=== PATIENT | female | born 1980 | race African-American/Black ===

== ENCOUNTER 2023-02-21 01:42 | Day surgery (SDC) | payer BC, SELFPAY ==
[2023-02-16 14:45] VITALS: BMI 32.7
--- NOTE | 2023-02-16 14:49 | PC.NURSE ---
Report to the Outpatient Waiting Room, entrance under the green pavilion located off [facility], at time 0830 on date 02/21/23. Planned Procedure Time: 1030. Time changes happen often and if your time is changed the preop area will call you the afternoon before. - You and your visitor will be asked to self-screen and do not enter if you have any COVID symptoms. - A mask is optional within the hospital at this time. Patients may have clear liquids (water, carbonated beverages, clear teas, apple juice) until 3 hours prior to surgery with a maximum of 20 ounces. - No food from midnight until time of surgery Take the following medications with a SIP of water the morning of surgery: N/A DO NOT STOP ANY OF YOUR OTHER PRESCRIPTION MEDICATIONS PRIOR TO SURGERY EXCEPT THE FOLLOWING Medications to discontinue per physician: N/A Date to take last dose: N/A Please no make-up, nail latvian, hairspray, perfume, deodorant, or body powder the day of surgery. No jewelry (including any body piercings) or valuables the day of surgery, leave them at home. Please take a shower or bath the night before, or the morning of, surgery with an antibacterial soap. Wear comfortable, loose fitting clothing. - Jewelry must be removed prior to entering the operating room. Rings and piercings that are not removed may be cut off. - The hospital will not accept responsibility for valuables. - Please leave all valuables, including medications, at home the day of surgery. If you are going home after surgery, a licensed frontload driver must drive you home. - NO public transportation without another adult if you receive anesthesia. - We recommend that an adult stay with you for 24 hours following discharge. - We also recommend that you do not drive, make important decision, drink alcoholic beverages, or take any drugs that were not prescribed by your health care provider for at least 24 hours after your discharge time. Follow any additional instructions given to you from your surgeon. If you or anyone in your household have experienced Covid symptoms in the past week, please notify your surgeon or the nurse liaison at the phone number below for possible testing. Telephone instructions given to PT Adal PETE and asked if any additional questions and then verbalized understanding. Patient advised to call surgeon office or pre surgery nurse liaison [phone] if any additional questions.
--- NOTE | 2023-02-21 07:34 | WPDHPUPDATE1 ---
History and Physical Update Update Date/Time: 02/21/23 07:34 History and Physical has been reviewed, including an updated exam of the patient. There are NO changes in the patient's condition. Risks, benefits, and alternatives have been discussed and questions answered. Patient agrees to proceed with procedure.
--- NOTE | 2023-02-21 07:34 | PM.HPGS ---
History of Present Illness History of Present Illness Consent: Risks, benefits, and alternatives have been discussed and questions answered. Patient agrees to proceed with procedure. Chief complaint: missing iud strings Narrative: Tata Mcnally is a 43 year old female with missing intrauterine device strings. Pelvic ultrasound reveals the IUD to be within the uterus. Patient did not tolerate attempts to remove in the office without anesthesia. Plan is to proceed with IUD removal in the operating room with hysteroscopy. Risks of infection, bleeding perforation, and inability to remove IUD are reviewed. Patient voices understanding and agrees to proceed. Review of Systems Review of Systems: not repeated day of surgery; patient states no changes in status PMFSH Past Medical History Medical History (Updated 02/21/23 @ 07:37 by Olimpia Maradiaga MD) (normal spontaneous vaginal delivery) Surgical History Surgical History (Updated 02/21/23 @ 07:36 by Olimpia Maradiaga MD) History of loop electrical excision procedure (LEEP) Social History Social History Smoking status: Never smoker Alcohol intake: never Substance use: never Substance use type: does not use Living arrangements: alone Spiritual care concerns: No Meds Home Medications and Allergies Home Medications Medication Instructions Recorded Confirmed Type No Home Medications 02/16/23 02/16/23 History Allergies Allergy/AdvReac Type Severity Reaction Status Date / Time No Known Allergies Allergy Mild Unverified 02/16/23 14:43 Exam Const: General: healthy appearing and alert Orientation/consciousness: patient oriented x3 Resp: Effort & Inspection: normal respiratory effort GI: GI Palp: Yes Soft to palpation, No Tenderness to palpation present (GI) and No Palpable mass present : External Female Exam: normal external appearance Speculum Exam - Vagina: normal appearance of the vagina and normal vaginal discharge Speculum Exam - Cervix: normal appearance of the cervix Bimanual exam- vagina & uterus: uterine size normal and consistency normal Bimanual Exam- Adnexa, other: normal adnexae and No adnexal tenderness Neuro: General: patient oriented x3 Assessment and Plan Assessment and plan (1) Malpositioned intrauterine device (IUD): Code(s): T83.32XA - Displacement of intrauterine contraceptive device, initial encounter Status: Acute Assessment and Plan: due to IUD strings being missing the plan history proceed with hysteroscopic removal of IUD
[2023-02-21 08:29] VITALS: BP 129/74; PULSE 64; RESP 18; TEMP 36.3; O2SAT 100
[2023-02-21] MEDS: LACTATED RINGERS 1,000 ML 30 ML IV CONT (08:36)
--- NOTE | 2023-02-21 08:36 | P.PNAN_ITS ---
Anes - Initial Pre Proc Eval Procedure: Operation Date: 02/21/23 09:30 Proposed Procedures p Hysteroscopy, Intrauterine Device Removal - Olimpia Maradiaga MD Date/Time: 02/21/23 08:36 Surgeon: Olimpia Maradiaga MD Pre Op Diagnosis: missing iud strings Patient Data Age: 43 Gender: F Height: 1.55 m Weight: 79.4 kg Last Vital Signs Temp 36.3 C L 02/21/23 08:29 Pulse 64 02/21/23 08:29 Resp 18 02/21/23 08:29 BP 129/74 02/21/23 08:29 Pulse Ox 100 02/21/23 08:29 O2 Del Method Room Air 02/21/23 08:29 Allergies Allergy/AdvReac Type Severity Reaction Status Date / Time No Known Allergies Allergy Mild Verified 02/21/23 08:19 Home Medications Medication Instructions Recorded Confirmed Type No Home Medications 02/16/23 02/21/23 History Patient hx anesthesia problems: none Family hx anesthesia problems: none Results Review: All pre-operative results and documents have been reviewed as part of the pre- operative evaluation. [facility] Past Medical History Medical History (Updated 02/21/23 @ 07:37 by Olimpia Maradiaga MD) (normal spontaneous vaginal delivery) Surgical History Surgical History (Updated 02/21/23 @ 07:36 by Olimpia Maradiaga MD) History of loop electrical excision procedure (LEEP) Social History Social History Smoking status: Never smoker Alcohol intake: never Substance use: never Substance use type: does not use Living arrangements: alone Spiritual care concerns: No Anes - Eval Final PreProcedure Day of Procedure 02/21/23 08:36 Patient weight: obese Heart: regular rate and rhythm Lungs: clear to auscultation Airway: Mallampati scale class II Neurological: alert and oriented Last oral intake: >/= 8 hours ASA classification: II Emergent: no Anesthetic plan: proceed Anesthesia type and monitoring: general GIVS and standard monitoring Results Review: All pre-operative results and documents have been reviewed as part of the pre- operative evaluation. Informed Consent: The patient's anesthetic plan and its attendant risks and benefits were discussed with the patient/family/POA. Questions were solicited and answers provided to the satisfaction of the patient/family/POA.
[2023-02-21] MEDS: LIDOCAINE HCL 1% LOCAL INJ 20 ML VIAL 10 ML INFILTRATE (09:45)
--- NOTE | 2023-02-21 09:53 | W.PM.PROC2 ---
Procedure Note - Detailed Date of Procedure 02/21/23 Pre-op Diagnosis missing iud strings Post-op Diagnosis Same Procedure Performed Hysteroscopy with removal of IUD Surgeon Olimpia Maradiaga MD Anesthesia MAC and Local Findings uterus sounds to 8cm; IUD is in its proper position and the strings are noted high in the cervix Description of Procedure The patient is taken to the operating room and placed under anesthesia in the dorsal lithotomy position. She was prepped and usual fashion. [place] speculum was placed in the vagina and the cervix grasped on the anterior lip with a tenaculum. The cervix is injected in each quadrant. The uterus is sounded to 8cm. The hysteroscope was attempted to be placed but does not pass easily. The cervix is dilated to a 5 Hegar. The hysteroscope was then able to pass easily. The above-stated findings were noted. The hysteroscope was removed. The polyp forceps are used to grasp the strings and the cervix and the IUD was removed intact and discarded. All instruments were then removed. Sponge, needle, and instrument counts are correct per the OR staff. The patient is awakened from anesthesia and taken to recovery in stable condition. Estimated Blood Loss 5 Drains No Packing No Pathology None sent Complications No immediate complications Condition Stable Disposition PACU
[2023-02-21 09:54] VITALS: BP 114/79; PULSE 88; RESP 14; O2SAT 99
[2023-02-21 10:14] VITALS: BP 118/72; PULSE 73; RESP 14; O2SAT 100
[2023-02-21 10:44] VITALS: BP 139/79; PULSE 50; RESP 14
[2023-02-21 11:15] VITALS: BP 140/69; PULSE 50; RESP 16
[2023-02-21 11:32] VITALS: BP 142/68; PULSE 51; RESP 15
== END 2023-02-21 11:45 | disposition home or self-care (01) ==
PROVIDERS: Visit Provider Obstetrics & Gynecology Gynecology
PROC: 0U5B8ZZ Destruction of Endometrium, Via Natural or Artificial Opening Endoscopic (ICD-10-PCS; CPT 58563; principal; 2023-02-21 09:30)
DX: T83.32XA Displacement of intrauterine contraceptive device, initial encounter (principal); Y84.8 Other medical procedures as the cause of abnormal reaction of the patient, or of later complication, without mention of misadventure at the time of the procedure; E66.9 Obesity, unspecified; Z68.33 Body mass index [BMI] 33.0-33.9, adult
CPT/HCPCS: 58562; J2250; J2704; J3010; J7120